=== PATIENT | male | born 1960 | race Caucasian/White ===

== ENCOUNTER → 2017-02-24 | Outpatient (CLI) | payer BC | END | disposition home or self-care (01) | LOC: C.RDSM 09:01 | PROVIDERS: ATTEND Orthopaedic Surgery | DX: R20.0 Anesthesia of skin (principal); M25.571 Pain in right ankle and joints of right foot; M25.572 Pain in left ankle and joints of left foot ==

== ENCOUNTER → 2017-07-03 | Outpatient (CLI) | payer OTHER ==
--- NOTE | 2017-07-03 09:21 | DIAGNOSTIC IMAGING REPORT ---
L-SPINE MIN 4 VIEWS ROUTINE CLINICAL HISTORY: R20.0 lower extremity numbness COMPARISON STUDY: No previous studies for comparison. FINDINGS: No fractures or subluxations are visualized. The disc space heights appear well-preserved. There are no erosive or destructive changes. IMPRESSION: Essentially normal conventional radiographic study of the lumbar spine for age Electronically signed by: Jass Ivory M.D. 07/03/2017 9:20 AM Dictated Date/Time: 07/03/2017 9:18 AM
== END | disposition home or self-care (01) ==
LOC: C.RADBC 08:55
PROVIDERS: ATTEND Psychiatry & Neurology Neurology
DX: R20.0 Anesthesia of skin (principal); R20.2 Paresthesia of skin